=== PATIENT | female | born 1975 | race Caucasian/White ===

== ENCOUNTER 2017-02-27 09:38 | Emergency (ER) | payer OTHER ==
[~2017-02-27] VITALS: Ht 160 cm; Wt 65.5 kg
[~2017-02-27 09:38] MED LIST: CYCL7.5T33 PO; IBUP-232 PO
[2017-02-27 09:46] VITALS: BP 139/72; PULSE 97; RESP 18; TEMP 98.8; O2SAT 100
--- NOTE | 2017-02-27 11:42 | PD ---
HPI Chief Complaint: Musculoskeletal Complaint Time Seen by Provider: 11:34 Travel History International Travel<30 days: No Contact w/Intl Traveler<30days: No Traveled to known affect area: No History of Present Illness HPI 41-year-old female presents to the emergency department complaining of low back pain for 1 day. States she was lifting some heavy boxes at work, twisted, and felt a 'pull in her back'. States that she has never had this before. States that she does have some "numbness" and pain on the anterior superior portion of her left thigh with mild pain. States that any movement exacerbates her back pain and is severe. States that Tylenol did not relieve her pain. She denies fever, chills, IV drug use, weakness, loss of bowel or bladder function, personal history of cancer. Patient says that she does not take any medications chronically and rarely takes anti-inflammatory's. PFSH Past Medical History Diminished Hearing: No Tetanus Vaccination: Unknown Influenza Vaccination: No ?: Not LMP: NOW Social History Alcohol Use: Yes (occ) Tobacco Use: No Substance Use: No Allergies-Medications (Allergen,Severity, Reaction): Coded Allergies: No Known Allergies (Verified , 02/27/17) Reported Meds & Prescriptions Reported Meds & Active Scripts Active Ibuprofen 800 Mg Tab 800 Mg PO TID 3 Days Robaxin (Methocarbamol) 500 Mg Tab 500 Mg PO TID 3 Days Review of Systems Except as stated in HPI: all other systems reviewed are Neg Physical Exam Narrative GENERAL: Well-developed well-nourished SKIN: Focused skin assessment warm/dry. HEAD: Atraumatic. Normocephalic. EYES: Pupils equal and round. No scleral icterus. No injection or drainage. ENT: No nasal bleeding or discharge. Mucous membranes pink and moist. NECK: Trachea midline. No JVD. CARDIOVASCULAR: Regular rate and rhythm. No murmur appreciated. RESPIRATORY: No accessory muscle use. Clear to auscultation. Breath sounds equal bilaterally. GASTROINTESTINAL: Abdomen soft, non-tender, nondistended. Hepatic and splenic margins not palpable. MUSCULOSKELETAL: No obvious deformities. No clubbing. No cyanosis. No edema. Sensation intact. BACK: No CVA tenderness. No rash. No point tenderness on palpation of the spine. Mild tenderness to palpation bilateral paraspinous muscles in the lumbar region. DTRs intact. NEUROLOGICAL: Awake and alert. No obvious cranial nerve deficits. Motor grossly within normal limits. Normal speech. PSYCHIATRIC: Appropriate mood and affect; insight and judgment normal. Data Data Last Documented VS Vital Signs Date Time Temp Pulse Resp B/P (MAP) Pulse Ox O2 Delivery O2 Flow Rate FiO2 02/27/17 09:46 98.8 97 18 139/72 (94) 100 Orders Orders Ketorolac Inj (Toradol Inj) (02/27/17 11:45) Ed Discharge Order (02/27/17 12:05) [facility] Medical Decision Making Medical Screen Exam Complete: Yes Emergency Medical Condition: Yes Differential Diagnosis Acute lumbago versus muscle spasm versus fracture Narrative Course 41 year female presents to the emergency department with low back pain after a twisting movement at work that occurred yesterday. The pain is severe. States that she has some pain in the anterior superior portion of her left leg with "numbness". No red flag symptoms or history. Physical exam demonstrated neurovascular intact. Tenderness to palpation along paraspinous muscles in the lumbosacral region left greater than right. Patient' s description of numbness not appreciated on physical exam. She states she could feel all sensation along her leg. Toradol administered in the emergency department for her pain. NSAIDs and muscle relaxers for her pain. Advised on using caution with these medications Patient follow up with a primary care physician Diagnosis Primary Impression: Lumbago Qualified Codes: M54.42 - Lumbago with sciatica, left side Referrals: Primary Care Physician Additional Instructions: Perform light stretches of the lower back and legs, and alternate heat and ice packs. If you develop increased pain, weakness, fever, chills, or bowel or bladder issues, return to the ED for further treatment and evaluation. Follow up with your primary care physician in 2-3 days. Scripts Ibuprofen (Ibuprofen) 800 Mg Tab 800 MG PO TID for Arthritis Pain for 3 Days, TAB 0 Refills Prov: Levar Garber MD 02/27/17 Methocarbamol (Robaxin) 500 Mg Tab 500 MG PO TID for Muscle Spasm for 3 Days, TAB 0 Refills Prov: Levar Garber MD 02/27/17 Disposition: 01 DISCHARGE HOME Condition: Stable Mralyn Rasheed Feb 27, 2017 11:42
[2017-02-27] MEDS ORDERED: KETOROLAC TROMETHAMINE 60 MG/2 ML (IM) VIAL IM ONE ×2 (11:45)
[2017-02-27] MEDS ORDERED: IBUP800T23 PO ×2 (12:04)
[2017-02-27] MEDS ORDERED: ROBA500T PO ×2 (12:04)
== END 2017-02-27 12:34 | disposition home or self-care (01) ==
LOC: PHED 09:38 → PHEFT 12:34
DX: M54.42 Lumbago with sciatica, left side (principal); R20.0 Anesthesia of skin; X50.0XXA Overexertion from strenuous movement or load, initial encounter; Y93.89 Activity, other specified; Y99.0 Civilian activity done for income or pay
CPT/HCPCS: 96372; 99284; J1885

== ENCOUNTER 2017-03-01 10:30 | Emergency (ER) | payer OTHER ==
[~2017-03-01] VITALS: Ht 160 cm; Wt 66.4 kg
[~2017-03-01 10:30] MED LIST changes: -CYCL7.5T33 PO; -IBUP-232 PO; +IBUP1TAB7 PO; +ROBA500T PO
[2017-03-01 10:35] VITALS: BP 122/63; PULSE 92; RESP 16; TEMP 98.1; O2SAT 97
[2017-03-01] MEDS ORDERED: CYCLOBENZAPRINE HCL 10 MG TAB PO ONE (11:15)
[2017-03-01] MEDS ORDERED: predniSONE 20 MG TAB PO ONE (11:15)
--- NOTE | 2017-03-01 11:21 | PD ---
HPI . Low back pain Chief Complaint: Musculoskeletal Complaint Time Seen by Provider: 11:12 Travel History International Travel<30 days: No Contact w/Intl Traveler<30days: No Traveled to known affect area: No History of Present Illness HPI This patient presents with the chief complaint of low back pain. She states that she twisted her back at work 3 days ago. She was seen here 2 days ago for it and was given prescriptions for ibuprofen and Robaxin. She states that these medications are not helping. He is not helping. Pain is exacerbated by movement. Pain is severe. The injury occurred at work. She has not followed up with a Workmen's Comp. doctor. She states that she works for the [employer]. [facility] Past Medical History Diminished Hearing: No ?: Not Social History Alcohol Use: Yes ([facility]) Tobacco Use: No Substance Use: No Allergies-Medications (Allergen,Severity, Reaction): Coded Allergies: No Known Allergies (Verified , 03/01/17) Reported Meds & Prescriptions Reported Meds & Active Scripts Active Ibuprofen 800 Mg Tab 800 Mg PO TID 3 Days Robaxin (Methocarbamol) 500 Mg Tab 500 Mg PO TID 3 Days Review of Systems Except as stated in HPI: all other systems reviewed are Neg General / Constitutional: No: Fever Musculoskeletal: Positive: Pain (low back pain) Neurologic: No: Weakness, Paresthesia, Incontinence Physical Exam Narrative GENERAL: I found the patient standing in the doorway. SKIN: Warm and dry. HEAD: Normocephalic/atraumatic. EYES: Pupils are equal. Extraocular movements are intact. NECK: Supple. RESPIRATORY: Nonlabored. MUSCULOSKELETAL: Diffuse low back tenderness. No point tenderness to percussion. Straight leg raise bilaterally is negative. NEUROLOGICAL: Nonfocal. She does not have any neurological signs or symptoms. PSYCHIATRIC: Appropriate mood and affect. Data Data Last Documented VS Vital Signs Date Time Temp Pulse Resp B/P (MAP) Pulse Ox O2 Delivery O2 Flow Rate FiO2 03/01/17 10:35 98.1 92 16 122/63 (82) 97 Orders Orders Cyclobenzaprine (Flexeril) (03/01/17 11:15) Prednisone (Deltasone) (03/01/17 11:15) Ed Discharge Order (03/01/17 11:17) [facility] Medical Decision Making Medical Screen Exam Complete: Yes Emergency Medical Condition: Yes Differential Diagnosis Differential diagnosis of back injury includes but is not limited to contusion, muscle strain, ligamentous strain, compression fracture, spinous process fracture Narrative Course This patient presents for reevaluation of a low back injury. This is a workman' s comp case. I have given her a single dose of prednisone and Flexeril and have told her to find out from her employer who she is supposed to be seeing for her Workmen's Comp.injury. Diagnosis Primary Impression: Low back strain Qualified Codes: S39.012D - Strain of muscle, fascia and tendon of lower back , subsequent encounter Patient Instructions: General Instructions Departure Forms: Tests/Procedures Additional Instructions: Go by the post office when you leave here and find out where you are supposed to be seen for Workmen's Compensation. All further treatment will need to calm from the Workmen's Compensation doctor. Condition: Stable Corrina Osullivan MD Mar 01, 2017 11:21
== END 2017-03-01 11:45 | disposition home or self-care (01) ==
LOC: PHED 10:30
DX: S39.012D Strain of muscle, fascia and tendon of lower back, subsequent encounter (principal); X50.1XXD Overexertion from prolonged static or awkward postures, subsequent encounter; Y99.0 Civilian activity done for income or pay
CPT/HCPCS: 99283; J7512